=== PATIENT | female | born 1955 | race Caucasian/White ===

== ENCOUNTER 2021-04-20 23:34 | Inpatient (IN) | payer MEDICARE, OTHER ==
[~2021-04-20] VITALS: Ht 152.4 cm; Wt 74.8 kg
--- NOTE | 2021-04-20 23:46 | NUR ---
PT [id number] Cristina GAN FROM [facility] FOR PSYCH ADMISSION. PLACED IN BED 10. PT AMBULATORY WITH STEADY GAIT. VSS. URINE COLLECTED, SENT TO LAB. AWAITING COMPOSITE WORKER FOR BLOOD DRAW. WILL CALL FOR COVID SWAB.
[2021-04-20 23:54] LABS: BASOPHILS % (AUTO) 0.4 % (0.0-2.0); EOSINOPHILS % (AUTO) 5.7 % (0.0-6.0); HEMATOCRIT 41 % (33-45); HEMOGLOBIN 13.8 g/dL (11.5-14.8); MEAN CORPUSCULAR HGB CONC 34 g/dl (31.0-36.0); MEAN CORPUSCULAR VOLUME 97 fL (82-100); MONOCYTES # (AUTO) 0.9 K/uL (0.1-1.30); MONOCYTES % (AUTO) 9.6 % (2.0-12.0); NEUTROPHILS # (AUTO) 4.9 K/uL (1.8-8.9); NEUTROPHILS % (AUTO) 52.3 % (43.0-81.0); PLATELET COUNT (AUTO) 252 K/uL (150-450); RED BLOOD CELL COUNT(AUTO) 4.25 MIL/uL (4.0-5.2); WHITE BLOOD COUNT (AUTO) 9.4 K/uL (4.3-11.0)
[2021-04-20] MEDS ORDERED: DIVA250T PO (23:55)
[2021-04-20] MEDS ORDERED: LISI10TA29 PO (23:55)
[2021-04-20] MEDS ORDERED: ATOR40TA PO (23:55)
[2021-04-20] MEDS ORDERED: DOCU100C36 PO (23:55)
[2021-04-20] MEDS ORDERED: VITAMIN D3 PO (23:55)
[2021-04-20] MEDS ORDERED: ACET325T53 PO (23:55)
[2021-04-20] MEDS ORDERED: OLAN10TA3 PO (23:55)
[2021-04-20] MEDS ORDERED: OLAN5TAB3 PO (23:55)
[2021-04-20] MEDS ORDERED: MULT-447 PO (23:55)
--- NOTE | 2021-04-20 23:55 | NUR ---
URINE COLLECTED AND SENT TO LAB
[2021-04-21] LABS: BILIRUBIN,URINE Negative (NEGATIVE); COLOR,URINE YELLOW (YELLOW); LEUKOCYTE ESTERASE ,URINE Negative (NEGATIVE); NITRITE, URINE Negative (NEGATIVE); PROTEIN,URINE Negative (NEGATIVE); UGLUCOSE Negative (NEGATIVE); UROBILINOGEN,URINE 0.2 EU/dL (0.2)
[2021-04-21 00:04] LABS: CALCIUM, SERUM 9.2 mg/dL (8.5-10.1); CARBON DIOXIDE 28 mmol/L (21-32); CHLORIDE 106 mmol/L (98-107); CREATININE 0.8 mg/dL (0.6-1.3); GLUCOSE 111 mg/dL (74-106); SODIUM SERUM 143 mmol/L (136-145); UREA NITROGEN, BLOOD 12 mg/dL (7-18)
[2021-04-21 00:10] LABS: ALANINE AMINOTRANSFERASE 39 U/L (12-78); ALBUMIN 3.9 g/dL (3.4-5.0); ALKALINE PHOSPHATASE 159 U/L (46-116); ASPARTATE AMINOTRANSFERASE 23 U/L (15-37); BILIRUBIN,DIRECT 0.1 mg/dL (0.0-0.2); BILIRUBIN,TOTAL 0.5 mg/dL (0.2-1.0); TOTAL PROTEIN, SERUM 7.8 g/dL (6.4-8.2)
[2021-04-21 00:11] LABS: ACETAMINOPHEN 0 ug/ml (10-30); ALCOHOL, BLOOD < 3 mg/dL (0-0)
[2021-04-21 00:31] LABS: BACTERIA,URINE Few /HPF (None Seen); RBC,URINE 0-2 /HPF (0-2); SQUAMOUS EPITHELIAL CELL,UR Few /HPF (None Seen); WBC,URINE 0-2 /HPF (0-3)
--- NOTE | 2021-04-21 01:03 | NUR ---
REPORT GIVEN TO DIONISIO SMITH FOR SHANNAN.
[2021-04-21 01:15] VITALS: BP 159/82
[2021-04-21] MEDS ORDERED: MAG HYDROX/AL HYDROX/SIMETH 30 ML UDC PO PRN (01:30)
[2021-04-21] MEDS ORDERED: TEMAZEPAM 7.5 MG CAPSULE PO PRN (01:30)
[2021-04-21] MEDS ORDERED: ACETAMINOPHEN 325 MG TABLET PO PRN (01:30)
[2021-04-21] MEDS ORDERED: MAGNESIUM HYDROXIDE 30 ML UDC PO PRN (01:30)
[2021-04-21] MEDS ORDERED: ACETAMINOPHEN 325 MG TABLET PO SCH (01:30)
[2021-04-21] MEDS ORDERED: BLOOD SUGAR DIAGNOSTIC 1 EACH STRIP IN ONE (01:45)
--- NOTE | 2021-04-21 02:12 | NUR ---
RN NOTE PATIENT IS FORGETFUL & STATED THAT SHE RECEIVED COVID VACCINE 2 DOSE BUT DOES NOT REMEMBER WHERE & WHEN SHE RECEIVED IT. WHEN ASKED WHO TO CALL (FAMILY MEMBER) TO NOTIFY ABOUT HER ADMISSION AT [facility] GPS UNIT, PATIENT STATED," NO ONE, DON'T CALL MY SON KANNAN AT ALL, I DON'T WANT HIM OR ANYONE TO KNOW THAT I AM HERE." PATIENT STATED," KANNAN IS THE ONE WHO SENT ME HERE."
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
[2021-04-21] MEDS: LORAZEPAM 0.5 MG TABLET PO PRN ×2 (03:10→10:28)
--- NOTE | 2021-04-21 03:13 | NUR ---
RN NOTE: ANXIETY PATIENT VERBALIZED FEELING ANXIOUS, PACING IN HER ROOM TO THE RESTROOM, UNABLE TO SLEEP. PRN ATIVAN 0.5 MG 1 TAB PO ADMINISTERED.
--- NOTE | 2021-04-21 07:23 | NUR ---
RN NOTE CHARGE NURSE NOTIFIED DR. OWENS ABOUT PATIENT'S ADMISSION AT GPS.
[2021-04-21 08:00] VITALS: BP 97/52
[2021-04-21] MEDS: MULTIVIT W/MINERALS 1 TAB TABLET PO SCH (08:53)
[2021-04-21] MEDS: DOCUSATE SODIUM 100 MG CAPSULE PO SCH (08:54)
[2021-04-21] MEDS: LISINOPRIL (10MG) 10 MG TABLET PO SCH (08:54)
--- NOTE | 2021-04-21 10:39 | NUR ---
RN-NOTES NOTED PATIENT VERY ANXIOUS PACING IN AND OUT HER ROOM,GUARDED AND IRRITABLE.STATED " I DON'T WANT ANYONE KNOWS THAT I'M HERE IN THE HOSPITAL EVEN MY SON". ATIVAN 0.5MG P.O GIVEN PRN ORDER. WILL CONT. MONITORING FOR SAFETY AND BEHAVIOR.
--- NOTE | 2021-04-21 11:30 | NUR ---
RN-NOTES PATIENT SITTING IN BED AWAKE,ALERT CALM,NO ACUTE DISTRESS NOTED.
[2021-04-21] MEDS ORDERED: OLANZAPINE 2.5 MG TABLET PO PRN (14:00)
--- NOTE | 2021-04-21 14:33 | NUR ---
RN-NOTES PATIENT SITTING IN THE CHAIR NEXT TO HER BED, CALM,NO ACUTE DISTRESS NOTED. ENDORSED TO CHARGE FOR CONTINUITY OF CARE.
[2021-04-21 16:00] VITALS: BP 117/70
[2021-04-21] MEDS: DIVALPROEX SODIUM 250 MG TABLET.DR PO SCH (16:40)
[2021-04-21 19:34] VITALS: BP 130/84
[2021-04-21 20:10] VITALS: BP 130/84
[2021-04-21] MEDS: OLANZAPINE 5 MG TABLET PO SCH (21:24)
[2021-04-21] MEDS: ATORVASTATIN 40 MG TABLET PO SCH (21:45)
[2021-04-22 07:03] LABS: BASOPHILS % (AUTO) 0.5 % (0.0-2.0); EOSINOPHILS % (AUTO) 10.3 % (0.0-6.0); HEMATOCRIT 39 % (33-45); LYMPHOCYTES # (AUTO) 2.1 K/uL (0.8-4.8); LYMPHOCYTES % (AUTO) 28.5 % (20.0-44.0); MEAN CORPUSCULAR HGB CONC 33 g/dl (31.0-36.0); MEAN CORPUSCULAR VOLUME 98 fL (82-100); MONOCYTES # (AUTO) 0.7 K/uL (0.1-1.30); MONOCYTES % (AUTO) 10.1 % (2.0-12.0); NEUTROPHILS # (AUTO) 3.7 K/uL (1.8-8.9); NEUTROPHILS % (AUTO) 50.6 % (43.0-81.0); PLATELET COUNT (AUTO) 231 K/uL (150-450); RED BLOOD CELL COUNT(AUTO) 3.97 MIL/uL (4.0-5.2); WHITE BLOOD COUNT (AUTO) 7.3 K/uL (4.3-11.0)
[2021-04-22 07:17] LABS: CALCIUM, SERUM 8.5 mg/dL (8.5-10.1); CREATININE 0.8 mg/dL (0.6-1.3); POTASSIUM 3.8 mmol/L (3.5-5.1)
[2021-04-22 08:00] VITALS: BP 156/85
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
[2021-04-22] MEDS: LISINOPRIL (10MG) 10 MG TABLET PO SCH (08:30)
[2021-04-22] MEDS: DIVALPROEX SODIUM 250 MG TABLET.DR PO SCH ×3 (08:30→16:54)
[2021-04-22] MEDS: MULTIVIT W/MINERALS 1 TAB TABLET PO SCH (08:30)
[2021-04-22] MEDS: DOCUSATE SODIUM 100 MG CAPSULE PO SCH (08:30)
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
--- NOTE | 2021-04-22 12:06 | NUR ---
Facility contact: MARIAM contacted Brian ([phone]) from [facility] and inquired if pt can return to the facility upon discharge. Brian reports that pt can return to facility upon discharge.
--- NOTE | 2021-04-22 12:08 | NUR ---
Initial discharge plan: Pt currently lives at [facility] located at [address] [address]; [phone].Per pt she would like to return home upon discharge. Per son, he would like pt to return back to SNF. Per, [facility] pt will be accepted back upon discharge. MARIAM will work with the pt and the MD regarding appropriate discharge planning. SW will form a safe and proper discharge.
[2021-04-22 20:00] VITALS: BP 128/86
[2021-04-22] MEDS: OLANZAPINE 5 MG TABLET PO SCH (21:19)
[2021-04-22] MEDS: ATORVASTATIN 40 MG TABLET PO SCH (22:14)
[2021-04-23 08:00] VITALS: BP 113/87
[2021-04-23] MEDS: LISINOPRIL (10MG) 10 MG TABLET PO SCH (08:29)
[2021-04-23] MEDS: DIVALPROEX SODIUM 250 MG TABLET.DR PO SCH ×3 (08:29→17:18)
[2021-04-23] MEDS: MULTIVIT W/MINERALS 1 TAB TABLET PO SCH (08:29)
[2021-04-23] MEDS: DOCUSATE SODIUM 100 MG CAPSULE PO SCH (08:31)
[2021-04-23 16:00] VITALS: BP 116/72
[2021-04-23 20:03] VITALS: BP 113/66
[2021-04-23] MEDS: OLANZAPINE 5 MG TABLET PO SCH (21:04)
[2021-04-23] MEDS: ATORVASTATIN 40 MG TABLET PO SCH (21:05)
[2021-04-24 08:00] VITALS: BP 90/50
[2021-04-24] MEDS: LISINOPRIL (10MG) 10 MG TABLET PO SCH (08:15)
[2021-04-24] MEDS: DIVALPROEX SODIUM 250 MG TABLET.DR PO SCH ×3 (08:44→16:15)
[2021-04-24] MEDS: DOCUSATE SODIUM 100 MG CAPSULE PO SCH (08:44)
[2021-04-24] MEDS: MULTIVIT W/MINERALS 1 TAB TABLET PO SCH (08:44)
[2021-04-24 16:00] VITALS: BP 97/58
[2021-04-24 20:00] VITALS: BP 130/82
[2021-04-24] MEDS: ATORVASTATIN 40 MG TABLET PO SCH (21:20)
[2021-04-24] MEDS: OLANZAPINE 5 MG TABLET PO SCH (21:21)
--- NOTE | 2021-04-24 21:53 | NUR ---
RN NOTE PATIENT REFUSED TO HAVE PHOTOS TAKEN PER PROTOCOL QSUNDAY.
[2021-04-25 08:00] VITALS: BP_SYST 115
[2021-04-25] MEDS: LISINOPRIL (10MG) 10 MG TABLET PO SCH (08:48)
[2021-04-25] MEDS: MULTIVIT W/MINERALS 1 TAB TABLET PO SCH (08:48)
[2021-04-25] MEDS: DOCUSATE SODIUM 100 MG CAPSULE PO SCH (08:48)
[2021-04-25] MEDS: DIVALPROEX SODIUM 250 MG TABLET.DR PO SCH ×3 (08:48→16:06)
[2021-04-25 16:21] VITALS: BP 124/67
[2021-04-25] MEDS: ATORVASTATIN 40 MG TABLET PO SCH (21:04)
[2021-04-25] MEDS: OLANZAPINE 5 MG TABLET PO SCH (21:04)
[2021-04-26 07:14] LABS: BASOPHILS % (AUTO) 0.6 % (0.0-2.0); EOSINOPHILS % (AUTO) 7.7 % (0.0-6.0); HEMATOCRIT 39 % (33-45); HEMOGLOBIN 13.1 g/dL (11.5-14.8); LYMPHOCYTES # (AUTO) 2.6 K/uL (0.8-4.8); LYMPHOCYTES % (AUTO) 33.5 % (20.0-44.0); MEAN CORPUSCULAR HGB CONC 34 g/dl (31.0-36.0); MEAN CORPUSCULAR VOLUME 98 fL (82-100); MONOCYTES # (AUTO) 0.9 K/uL (0.1-1.30); MONOCYTES % (AUTO) 11.1 % (2.0-12.0); NEUTROPHILS # (AUTO) 3.6 K/uL (1.8-8.9); NEUTROPHILS % (AUTO) 47.1 % (43.0-81.0); PLATELET COUNT (AUTO) 235 K/uL (150-450); RED BLOOD CELL COUNT(AUTO) 3.94 MIL/uL (4.0-5.2); WHITE BLOOD COUNT (AUTO) 7.7 K/uL (4.3-11.0)
[2021-04-26 07:51] LABS: ALBUMIN 3.1 g/dL (3.4-5.0); BILIRUBIN,TOTAL 0.3 mg/dL (0.2-1.0); CALCIUM, SERUM 8.5 mg/dL (8.5-10.1); CREATININE 0.8 mg/dL (0.6-1.3); POTASSIUM 3.9 mmol/L (3.5-5.1); TOTAL PROTEIN, SERUM 6.8 g/dL (6.4-8.2)
[2021-04-26 08:00] VITALS: BP 100/54
[2021-04-26] MEDS: ERGOCALCIFEROL (VITAMIN D 2) 50,000 UNIT CAPSULE PO SCH (08:28)
[2021-04-26] MEDS: DIVALPROEX SODIUM 250 MG TABLET.DR PO SCH ×3 (08:28→16:35)
[2021-04-26] MEDS: DOCUSATE SODIUM 100 MG CAPSULE PO SCH (08:29)
[2021-04-26] MEDS: MULTIVIT W/MINERALS 1 TAB TABLET PO SCH (08:29)
[2021-04-26] MEDS: LISINOPRIL (10MG) 10 MG TABLET PO SCH (08:30)
--- NOTE | 2021-04-26 14:05 | NUR ---
Probable cause hearing: Pts 5250 hold was upheld on the grounds of gravely disabled.
[2021-04-26 16:00] VITALS: BP 122/88
[2021-04-26 20:00] VITALS: BP 128/82
[2021-04-26] MEDS: ATORVASTATIN 40 MG TABLET PO SCH (21:17)
[2021-04-26] MEDS: OLANZAPINE 5 MG TABLET PO SCH (21:17)
[2021-04-27 09:11] VITALS: BP 100/63
[2021-04-27] MEDS: MULTIVIT W/MINERALS 1 TAB TABLET PO SCH (09:18)
[2021-04-27] MEDS: DIVALPROEX SODIUM 250 MG TABLET.DR PO SCH ×3 (09:18→17:37)
[2021-04-27] MEDS: LISINOPRIL (10MG) 10 MG TABLET PO SCH (09:18)
[2021-04-27] MEDS: DOCUSATE SODIUM 100 MG CAPSULE PO SCH (09:18)
[2021-04-27 16:34] VITALS: BP 156/93
[2021-04-27 20:31] VITALS: BP 125/71
[2021-04-27] MEDS: ATORVASTATIN 40 MG TABLET PO SCH (20:55)
[2021-04-27] MEDS ORDERED: OLANZAPINE 5 MG TABLET PO SCH (21:00)
[2021-04-28 08:00] VITALS: BP 92/52
[2021-04-28] MEDS: LISINOPRIL (10MG) 10 MG TABLET PO SCH (08:29)
[2021-04-28] MEDS: DOCUSATE SODIUM 100 MG CAPSULE PO SCH (08:30)
[2021-04-28] MEDS: MULTIVIT W/MINERALS 1 TAB TABLET PO SCH (08:31)
[2021-04-28] MEDS: DIVALPROEX SODIUM 250 MG TABLET.DR PO SCH ×3 (08:31→16:42)
[2021-04-28 16:00] VITALS: BP 97/59
[2021-04-28 20:00] VITALS: BP 111/79
[2021-04-28] MEDS: OLANZAPINE 5 MG TABLET PO SCH (20:31)
[2021-04-28] MEDS: BENZTROPINE MESYLATE (1 MG) 1 MG TABLET PO SCH (20:32)
[2021-04-28] MEDS: ATORVASTATIN 40 MG TABLET PO SCH (21:06)
[2021-04-29 08:00] VITALS: BP 154/82
[2021-04-29] MEDS: BENZTROPINE MESYLATE (1 MG) 1 MG TABLET PO SCH ×2 (08:19→16:28)
[2021-04-29] MEDS: DOCUSATE SODIUM 100 MG CAPSULE PO SCH (08:19)
[2021-04-29] MEDS: DIVALPROEX SODIUM 250 MG TABLET.DR PO SCH ×3 (08:19→16:29)
[2021-04-29] MEDS: LISINOPRIL (10MG) 10 MG TABLET PO SCH (08:19)
[2021-04-29] MEDS: MULTIVIT W/MINERALS 1 TAB TABLET PO SCH (08:20)
[2021-04-29 16:00] VITALS: BP 108/69
[2021-04-29 20:01] VITALS: BP 111/59
[2021-04-29] MEDS: OLANZAPINE 5 MG TABLET PO SCH (20:28)
[2021-04-29] MEDS: ATORVASTATIN 40 MG TABLET PO SCH (21:14)
[2021-04-30 08:00] VITALS: BP 117/74
[2021-04-30] MEDS: BENZTROPINE MESYLATE (1 MG) 1 MG TABLET PO SCH ×2 (08:08→16:57)
[2021-04-30] MEDS: DIVALPROEX SODIUM 250 MG TABLET.DR PO SCH ×3 (08:08→16:57)
[2021-04-30] MEDS: DOCUSATE SODIUM 100 MG CAPSULE PO SCH (08:08)
[2021-04-30] MEDS: LISINOPRIL (10MG) 10 MG TABLET PO SCH (08:08)
[2021-04-30] MEDS: MULTIVIT W/MINERALS 1 TAB TABLET PO SCH (08:08)
[2021-04-30 16:07] VITALS: BP 105/58
[2021-04-30 20:02] VITALS: BP 123/69
[2021-04-30] MEDS: OLANZAPINE 5 MG TABLET PO SCH (21:20)
[2021-04-30] MEDS: ATORVASTATIN 40 MG TABLET PO SCH (21:27)
[2021-05-01 01:28] VITALS: BP 123/69
[2021-05-01 08:00] VITALS: BP 121/84
[2021-05-01] MEDS: DIVALPROEX SODIUM 250 MG TABLET.DR PO SCH ×3 (08:36→16:31)
[2021-05-01] MEDS: BENZTROPINE MESYLATE (1 MG) 1 MG TABLET PO SCH ×2 (08:36→16:31)
[2021-05-01] MEDS: MULTIVIT W/MINERALS 1 TAB TABLET PO SCH (08:36)
[2021-05-01] MEDS: DOCUSATE SODIUM 100 MG CAPSULE PO SCH (08:37)
[2021-05-01] MEDS: LISINOPRIL (10MG) 10 MG TABLET PO SCH (08:37)
[2021-05-01 16:00] VITALS: BP 104/68
[2021-05-01 20:00] VITALS: BP 102/56
--- NOTE | 2021-05-01 20:00 | NUR ---
GPS-RN NOTES: PATIENT REFUSED SKIN WEEKLY ASSESSMENT. EXPLAINED RISKS AND BENEFITS BUT PATIENT CONTINUED TO REFUSE.
[2021-05-01] MEDS: OLANZAPINE 5 MG TABLET PO SCH (21:15)
[2021-05-01] MEDS: ATORVASTATIN 40 MG TABLET PO SCH (21:15)
[2021-05-02 08:00] VITALS: BP 107/64
[2021-05-02] MEDS: BENZTROPINE MESYLATE (1 MG) 1 MG TABLET PO SCH ×2 (08:18→17:32)
[2021-05-02] MEDS: DOCUSATE SODIUM 100 MG CAPSULE PO SCH (08:18)
[2021-05-02] MEDS: MULTIVIT W/MINERALS 1 TAB TABLET PO SCH (08:18)
[2021-05-02] MEDS: DIVALPROEX SODIUM 250 MG TABLET.DR PO SCH ×3 (08:18→17:32)
[2021-05-02] MEDS: LISINOPRIL (10MG) 10 MG TABLET PO SCH (08:19)
[2021-05-02 15:26] LABS: CALCIUM, SERUM 9.1 mg/dL (8.5-10.1); CREATININE 0.8 mg/dL (0.6-1.3); POTASSIUM 4.3 mmol/L (3.5-5.1)
[2021-05-02 16:00] VITALS: BP 130/72
[2021-05-02] MEDS ORDERED: OLANZAPINE 10 MG VIAL IM STA (18:40)
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
[2021-05-02 20:00] VITALS: BP 143/79
[2021-05-02] MEDS: OLANZAPINE 5 MG TABLET PO SCH (21:06)
[2021-05-02] MEDS: ATORVASTATIN 40 MG TABLET PO SCH (21:53)
[2021-05-03 07:28] LABS: BASOPHILS % (AUTO) 0.2 % (0.0-2.0); EOSINOPHILS % (AUTO) 2.3 % (0.0-6.0); HEMATOCRIT 37 % (33-45); HEMOGLOBIN 12.6 g/dL (11.5-14.8); LYMPHOCYTES # (AUTO) 1.6 K/uL (0.8-4.8); LYMPHOCYTES % (AUTO) 12.9 % (20.0-44.0); MEAN CORPUSCULAR HGB CONC 34 g/dl (31.0-36.0); MEAN CORPUSCULAR VOLUME 97 fL (82-100); MONOCYTES # (AUTO) 1.6 K/uL (0.1-1.30); MONOCYTES % (AUTO) 12.8 % (2.0-12.0); NEUTROPHILS # (AUTO) 8.9 K/uL (1.8-8.9); NEUTROPHILS % (AUTO) 71.8 % (43.0-81.0); PLATELET COUNT (AUTO) 231 K/uL (150-450); RED BLOOD CELL COUNT(AUTO) 3.84 MIL/uL (4.0-5.2); WHITE BLOOD COUNT (AUTO) 12.5 K/uL (4.3-11.0)
[2021-05-03 07:54] LABS: ALBUMIN 2.8 g/dL (3.4-5.0); BILIRUBIN,TOTAL 0.7 mg/dL (0.2-1.0); CALCIUM, SERUM 8.5 mg/dL (8.5-10.1); CREATININE 0.7 mg/dL (0.6-1.3); POTASSIUM 3.8 mmol/L (3.5-5.1); TOTAL PROTEIN, SERUM 7.2 g/dL (6.4-8.2)
[2021-05-03 08:00] VITALS: BP 122/86
[2021-05-03] MEDS: MULTIVIT W/MINERALS 1 TAB TABLET PO SCH (09:24)
[2021-05-03] MEDS: DOCUSATE SODIUM 100 MG CAPSULE PO SCH (09:24)
[2021-05-03] MEDS: BENZTROPINE MESYLATE (1 MG) 1 MG TABLET PO SCH ×2 (09:24→17:59)
[2021-05-03] MEDS: DIVALPROEX SODIUM 250 MG TABLET.DR PO SCH ×3 (09:25→17:58)
[2021-05-03] MEDS: LISINOPRIL (10MG) 10 MG TABLET PO SCH (09:25)
[2021-05-03] MEDS: ERGOCALCIFEROL (VITAMIN D 2) 50,000 UNIT CAPSULE PO SCH (09:25)
[2021-05-03] MEDS: OLANZAPINE 2.5 MG TABLET PO SCH (12:44)
[2021-05-03 16:00] VITALS: BP 96/61
[2021-05-03 20:00] VITALS: BP 127/77
[2021-05-03 20:08] VITALS: BP 127/77
[2021-05-03] MEDS ORDERED: OLANZAPINE 5 MG TABLET PO SCH (21:00)
[2021-05-03] MEDS: ATORVASTATIN 40 MG TABLET PO SCH (21:30)
--- NOTE | 2021-05-03 21:50 | NUR ---
RN NOTE: REFUSED SKIN ASSESSMENT PATIENT NOTED WITH NUMEROUS SCRATCHES WITH OPEN SKIN TO HANDS & FEET, PATIENT IS NON COMPLAINT WITH FULL SKIN ASSESSMENT & REFUSED PICTURES. PATIENT BECOMES VERY PARANOID, SUSPICIOUS, RESTLESS & AGITATED WHEN ENCOURAGED. DESPITE OF EXPLANATIONS PT REFUSED SKIN REASSESSMENT MULTIPLE TIMES.
[2021-05-04 08:00] VITALS: BP 119/67
[2021-05-04] MEDS: DOCUSATE SODIUM 100 MG CAPSULE PO SCH (09:23)
[2021-05-04] MEDS: LISINOPRIL (10MG) 10 MG TABLET PO SCH (09:24)
[2021-05-04] MEDS: MULTIVIT W/MINERALS 1 TAB TABLET PO SCH (09:24)
[2021-05-04] MEDS: DIVALPROEX SODIUM 250 MG TABLET.DR PO SCH ×3 (09:24→17:37)
[2021-05-04] MEDS: BENZTROPINE MESYLATE (1 MG) 1 MG TABLET PO SCH ×2 (09:24→17:38)
[2021-05-04] MEDS: OLANZAPINE 2.5 MG TABLET PO SCH (13:03)
[2021-05-04 16:00] VITALS: BP 136/73
[2021-05-04 19:50] VITALS: BP_SYST 116; BP_SYST 133; BP_DIAS 76; BP_DIAS 81
[2021-05-04] MEDS: ATORVASTATIN 40 MG TABLET PO SCH (22:31)
[2021-05-04] MEDS: OLANZAPINE 5 MG TABLET PO SCH (22:31)
[2021-05-04] MEDS: LORAZEPAM 0.5 MG TABLET PO PRN (22:32)
[2021-05-05 08:00] VITALS: BP 127/75
[2021-05-05] MEDS: BENZTROPINE MESYLATE (1 MG) 1 MG TABLET PO SCH ×2 (08:20→16:20)
[2021-05-05] MEDS: DIVALPROEX SODIUM 250 MG TABLET.DR PO SCH ×3 (08:20→16:20)
[2021-05-05] MEDS: LISINOPRIL (10MG) 10 MG TABLET PO SCH (08:20)
[2021-05-05] MEDS: DOCUSATE SODIUM 100 MG CAPSULE PO SCH (08:20)
[2021-05-05] MEDS: MULTIVIT W/MINERALS 1 TAB TABLET PO SCH (08:20)
[2021-05-05] MEDS: OLANZAPINE 2.5 MG TABLET PO SCH (13:20)
[2021-05-05 16:00] VITALS: BP 121/68
[2021-05-05 19:52] VITALS: BP 116/71
[2021-05-05] MEDS: OLANZAPINE 5 MG TABLET PO SCH (21:29)
[2021-05-05] MEDS: ATORVASTATIN 40 MG TABLET PO SCH (21:29)
[2021-05-06 08:00] VITALS: BP 99/66
[2021-05-06] MEDS: LISINOPRIL (10MG) 10 MG TABLET PO SCH (09:00)
[2021-05-06] MEDS: MULTIVIT W/MINERALS 1 TAB TABLET PO SCH (09:12)
[2021-05-06] MEDS: DIVALPROEX SODIUM 250 MG TABLET.DR PO SCH ×3 (09:12→17:53)
[2021-05-06] MEDS: BENZTROPINE MESYLATE (1 MG) 1 MG TABLET PO SCH ×2 (09:12→17:53)
[2021-05-06] MEDS: DOCUSATE SODIUM 100 MG CAPSULE PO SCH (09:12)
[2021-05-06] MEDS: OLANZAPINE 2.5 MG TABLET PO SCH ×2 (13:59→17:53)
--- NOTE | 2021-05-06 15:19 | NUR ---
Discharge Planning: SW met with pt. bedside to discuss discharge plan. SW informed pt. she has been accepted back to [facility]. pt. states she understands and is agreeable to D/C to [facility].
--- NOTE | 2021-05-06 15:28 | NUR ---
Family contact regarding D/C : SW called pt.'s son Davonte Magdaleno ([phone]) to notify him that the pt. was accepted back to [facility] and will have continuity of care as Dr. Fraser will be following the pt.'s care whi at the facility. Davonte expressed understanding and is agreeable to plan.
[2021-05-06 16:00] VITALS: BP 122/76
[2021-05-06 20:18] VITALS: BP 146/83
[2021-05-06] MEDS: ATORVASTATIN 40 MG TABLET PO SCH (21:20)
[2021-05-06] MEDS: OLANZAPINE 5 MG TABLET PO SCH (21:20)
--- NOTE | 2021-05-06 21:44 | NUR ---
GPS RN NOTES: ZYPREXA 7.5MG ADMINISTERED PO ORDERED. 0.25MG PARTIAL DOSE WASTED PER MD ORDER.
[2021-05-07 08:00] VITALS: BP 103/66
[2021-05-07] MEDS: BENZTROPINE MESYLATE (1 MG) 1 MG TABLET PO SCH ×2 (08:16→16:18)
[2021-05-07] MEDS: DOCUSATE SODIUM 100 MG CAPSULE PO SCH (08:16)
[2021-05-07] MEDS: DIVALPROEX SODIUM 250 MG TABLET.DR PO SCH ×3 (08:16→16:18)
[2021-05-07] MEDS: MULTIVIT W/MINERALS 1 TAB TABLET PO SCH (08:17)
[2021-05-07] MEDS: LISINOPRIL (10MG) 10 MG TABLET PO SCH (10:30)
[2021-05-07] MEDS: OLANZAPINE 2.5 MG TABLET PO SCH ×2 (12:05→16:17)
[2021-05-07 16:00] VITALS: BP 124/67
[2021-05-07 21:02] VITALS: BP 114/66
[2021-05-07] MEDS: ATORVASTATIN 40 MG TABLET PO SCH (21:45)
[2021-05-07] MEDS: OLANZAPINE 5 MG TABLET PO SCH (21:45)
[2021-05-08 08:00] VITALS: BP 156/92
[2021-05-08] MEDS: DOCUSATE SODIUM 100 MG CAPSULE PO SCH (08:52)
[2021-05-08] MEDS: LISINOPRIL (10MG) 10 MG TABLET PO SCH (08:53)
[2021-05-08] MEDS: MULTIVIT W/MINERALS 1 TAB TABLET PO SCH (08:53)
[2021-05-08] MEDS: DIVALPROEX SODIUM 250 MG TABLET.DR PO SCH ×3 (08:53→16:52)
[2021-05-08] MEDS: BENZTROPINE MESYLATE (1 MG) 1 MG TABLET PO SCH ×2 (08:53→16:52)
[2021-05-08] MEDS: OLANZAPINE 2.5 MG TABLET PO SCH ×2 (12:39→16:52)
[2021-05-08 16:00] VITALS: BP 132/89
[2021-05-08 20:23] VITALS: BP 104/64
[2021-05-08] MEDS: OLANZAPINE 5 MG TABLET PO SCH (20:42)
[2021-05-08] MEDS: ATORVASTATIN 40 MG TABLET PO SCH (21:46)
--- NOTE | 2021-05-09 06:36 | NUR ---
GPS RN NOTES: PATIENT LAYING ON BED AWAKE, A/O X2. PATIENT SLEPT 6HR THIS SHIFT. WEEKLY SKIN ASSESSMENT DONE, PICTURES TAKEN AND PLACED IN PATIENT CHART. NO S/S OF DISTRESS. RESPIRATION EVEN AND UNLABORED WITH EQUAL RISE AND FALL OF THE CHEST, ON ROOM AIR. BED IN LOWEST POSITION AND LOCKED, SIDE RAILS UP X2. CALL MACDONALD WITHIN REACH. ALL PATIENT CARE NEEDS HAVE BEEN MET ANTICIPATED. WILL CONTINUE TO MONITOR AND ENDORSE TO AM SHIFT.
[2021-05-09 08:28] VITALS: BP 103/61
[2021-05-09] MEDS: DOCUSATE SODIUM 100 MG CAPSULE PO SCH (08:52)
[2021-05-09] MEDS: MULTIVIT W/MINERALS 1 TAB TABLET PO SCH (08:52)
[2021-05-09] MEDS: BENZTROPINE MESYLATE (1 MG) 1 MG TABLET PO SCH (08:52)
[2021-05-09] MEDS: DIVALPROEX SODIUM 250 MG TABLET.DR PO SCH ×2 (08:52→12:30)
[2021-05-09 08:53] VITALS: BP 103/61
[2021-05-09] MEDS: LISINOPRIL (10MG) 10 MG TABLET PO SCH (08:53)
[2021-05-09] MEDS: OLANZAPINE 2.5 MG TABLET PO SCH (12:30)
--- NOTE | 2021-05-09 13:30 | NUR ---
Discharge Note: The pt. was discharged back to [facility] [[address] [address]; [phone]]. Pt. was transported via [facility] [phone]. The pt. and the pt.s son, lalitha Magdaleno ([phone]) were notified of discharge and both agreeable. Upon discharge the pt. mood is euthymic, pt. remained calm & cooperative. The pt. denies SI/HI and denies hallucinations. The pt. will be seen by Psychiatrist, Dr. Fraser at facility for SHANNAN. Pt. will be seen by tobacco stemmer machine, Dr. Richardson [[address] [address]; [phone]] at facility. The choice of vendor and multidisciplinary exit care form was done, printed, signed, and given to the patient.
--- NOTE | 2021-05-09 14:25 | NUR ---
CAKE MIXER NOTE- PT DC AT THIS TIME TO [facility] VIA NIR. PT ALERT ORIENTED PERSON PLACE,. DENIES SI HI AH VH. NO VALUABLES TO RETURN. ID [id number] REMOVED. REPORT PHONED TO FACILITY TO MAC. ESCORTED OFF UNIT BY AMBULANCE STAFF AND THIS RN
== END 2021-05-09 14:25 | DRG 885 ==
LOC: ER 23:40 → GPS 04-21 00:43
PROVIDERS: ADMIT Psychiatry & Neurology Psychosomatic Medicine; ATTEND Internal Medicine
DX: F25.9 Schizoaffective disorder, unspecified (principal); E44.1 Mild protein-calorie malnutrition; I10 Essential (primary) hypertension; Z68.32 Body mass index [BMI] 32.0-32.9, adult; E66.9 Obesity, unspecified; E78.5 Hyperlipidemia, unspecified; F02.80 Dementia in other diseases classified elsewhere, unspecified severity, without behavioral disturbance, psychotic disturbance, mood disturbance, and anxiety; I69.311 Memory deficit following cerebral infarction; F41.9 Anxiety disorder, unspecified; Z91.81 History of falling; Z88.6 Allergy status to analgesic agent; Z88.0 Allergy status to penicillin; M62.81 Muscle weakness (generalized); R79.89 Other specified abnormal findings of blood chemistry; Z79.899 Other long term (current) drug therapy; R45.87 Impulsiveness; Z20.822 Contact with and (suspected) exposure to COVID-19
CPT/HCPCS: 36415; 80048-TC; 80053-TC; 80061-TC; 80076-TC; 80164-TC; 81001; 82962-TC; 85025-TC; 87081-TC; C9803; G0480; J3490

== ENCOUNTER 2021-12-08 16:36 | Inpatient (IN) | payer MEDICARE, OTHER ==
[~2021-12-08] VITALS: Ht 167.6 cm; Wt 79.8 kg
[~2021-12-08 16:36] MED LIST: ACET325T53 PO; ATOR40TA PO; DIVA250T PO; DOCU100C36 PO; LISI10TA29 PO; MULT-447 PO; OLAN10TA3 PO; OLAN5TAB3 PO; VITAMIN D3 PO
--- NOTE | 2021-12-08 16:42 | NUR ---
To ER bed 12, from [facility], was Sent here for psych eval- uncontrolled behavior, refusing care, HITS staff", aaox3, breathing even and non labored, connected to monitor, awaiting md to
[2021-12-08] MEDS ORDERED: ACET325T53 PO (17:24)
[2021-12-08] MEDS ORDERED: DIVA500T2 PO (17:24)
[2021-12-08] MEDS ORDERED: BENZ0.5T43 PO (17:24)
[2021-12-08] MEDS ORDERED: ERGO500093 PO (17:24)
[2021-12-08] MEDS ORDERED: MAGN400O6 PO (17:24)
--- NOTE | 2021-12-08 17:27 | NUR ---
URINE COLLECTED AND COVID SWAB DONE AND SENT TO LAB
[2021-12-08 17:28] LABS: BASOPHILS # (AUTO) 0.1 K/uL (0.0-0.2); BASOPHILS % (AUTO) 0.6 % (0.0-2.0); EOSINOPHILS % (AUTO) 1.1 % (0.0-6.0); HEMATOCRIT 42 % (33-45); HEMOGLOBIN 14.1 g/dL (11.5-14.8); LYMPHOCYTES # (AUTO) 2.1 K/uL (0.8-4.8); MEAN CORPUSCULAR HGB CONC 34 g/dl (31.0-36.0); MEAN CORPUSCULAR VOLUME 96 fL (82-100); MONOCYTES # (AUTO) 0.7 K/uL (0.1-1.30); MONOCYTES % (AUTO) 8.2 % (2.0-12.0); NEUTROPHILS % (AUTO) 67.1 % (43.0-81.0); PLATELET COUNT (AUTO) 240 K/uL (150-450); RED BLOOD CELL COUNT(AUTO) 4.37 MIL/uL (4.0-5.2)
--- NOTE | 2021-12-08 17:28 | NUR ---
CALLED IRVIN [phone]
[2021-12-08 18:08] LABS: BILIRUBIN,URINE NEGATIVE (NEGATIVE); COLOR,URINE YELLOW (YELLOW); LEUKOCYTE ESTERASE ,URINE NEGATIVE (NEGATIVE); NITRITE, URINE NEGATIVE (NEGATIVE); PROTEIN,URINE NEGATIVE (NEGATIVE); UGLUCOSE NEGATIVE (NEGATIVE); UROBILINOGEN,URINE 0.2 EU/dL (0.2)
[2021-12-08 18:11] LABS: BACTERIA,URINE 1+ /HPF (None Seen); WBC,URINE 0-2 /HPF (0-3)
[2021-12-08 18:12] LABS: SQUAMOUS EPITHELIAL CELL,UR 21-50 /HPF (None Seen)
--- NOTE | 2021-12-08 18:13 | NUR ---
MOVE SHEET SUBMITTED AND CALLED FOR GPS BED.
[2021-12-08 18:48] LABS: CARBON DIOXIDE 25 mmol/L (21-32); CHLORIDE 104 mmol/L (98-107); GLUCOSE 104 mg/dL (74-106); POTASSIUM 3.4 mmol/L (3.5-5.1); SODIUM SERUM 140 mmol/L (136-145)
[2021-12-08 18:49] LABS: CALCIUM, SERUM 9.1 mg/dL (8.5-10.1); CREATININE 0.8 mg/dL (0.6-1.3); UREA NITROGEN, BLOOD 20 mg/dL (7-18)
[2021-12-08 18:59] LABS: ALANINE AMINOTRANSFERASE 41 U/L (12-78); ALKALINE PHOSPHATASE 150 U/L (46-116); ASPARTATE AMINOTRANSFERASE 22 U/L (15-37); BILIRUBIN,DIRECT 0.1 mg/dL (0.0-0.2); BILIRUBIN,TOTAL 0.5 mg/dL (0.2-1.0); TOTAL PROTEIN, SERUM 8.5 g/dL (6.4-8.2)
[2021-12-08 19:00] LABS: ALCOHOL, BLOOD < 3 mg/dL (0-0)
--- NOTE | 2021-12-08 20:12 | NUR ---
ROOM 211-1 GPS
--- NOTE | 2021-12-08 20:21 | NUR ---
REPORT GIVEN TO JULIAN SMITH FOR SHANNAN
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
[2021-12-08] MEDS ORDERED: ACETAMINOPHEN 325 MG TABLET PO PRN (21:00)
[2021-12-08] MEDS ORDERED: MAGNESIUM HYDROXIDE 30 ML UDC PO PRN (21:00)
[2021-12-08] MEDS ORDERED: TEMAZEPAM 7.5 MG CAPSULE PO PRN (21:00)
[2021-12-08] MEDS ORDERED: MAG HYDROX/AL HYDROX/SIMETH 30 ML UDC PO PRN (21:00)
[2021-12-08] MEDS ORDERED: LORAZEPAM 0.5 MG TABLET PO PRN (21:00)
[2021-12-08] MEDS ORDERED: BLOOD SUGAR DIAGNOSTIC 1 EACH STRIP IN ONE (21:30)
[2021-12-08 21:47] VITALS: BP 136/89
[2021-12-08] MEDS ORDERED: NITROFURANTOIN/MONOHYDRATE MACROCRYSTALS 100 MG CAPSULE PO SCH (22:00)
[2021-12-08] MEDS ORDERED: POTASSIUM CHLORIDE 20 MEQ TAB.PRT.SR PO ONE (22:00)
[2021-12-08] MEDS ORDERED: ERGOCALCIFEROL (VITAMIN D 2) 50,000 UNIT CAPSULE PO SCH (23:30)
[2021-12-09 08:00] VITALS: BP 104/67
[2021-12-09] MEDS: LISINOPRIL (10MG) 10 MG TABLET PO SCH (09:00)
[2021-12-09] MEDS: DOCUSATE SODIUM 100 MG CAPSULE PO SCH (09:06)
[2021-12-09] MEDS: MULTIVIT W/MINERALS 1 TAB TABLET PO SCH (09:06)
--- NOTE | 2021-12-09 12:25 | NUR ---
Received an order from Dr. Fraser for the denial of right to use the phone.
--- NOTE | 2021-12-09 14:03 | NUR ---
Family Contact: Pt. gave SW verbal consent to call her son, Davonte Magdaleno [phone]. SW called Davonte to discuss Discharge plan and gather collateral information. Davonte stated he is the pt.'s POA and will email this SW the POA paperwork. Per pt.'s son, the pt. 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
--- NOTE | 2021-12-09 14:04 | NUR ---
Initial Discharge Note: The pt. currently resides at [facility] [[address] [facility] [address]; [phone]]. MARIAM spoke to Erin from [facility] Admission dept. who stated that pt. can return to facility when she is stable and ready for discharge. The pt. stated she is ambivalent about returning back to facility and would prefer to return to her old apartment. MARIAM discussed DC plan with pt.'s POA/son, Davonte Magdaleno [phone] who stated that apartment is no longer available and pt. is not able to return. Per Davonte, he would like the pt. to return to [facility] or be placed in a facility near [place] or [place]. Noted. SW will collaborate with patient, family & psychiatrist to formulate a safe & proper discharge plan.
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
[2021-12-09 16:00] VITALS: BP 100/62
[2021-12-09 19:50] VITALS: BP 111/70
[2021-12-09 19:58] VITALS: BP 111/70
[2021-12-09] MEDS: ATORVASTATIN 40 MG TABLET PO SCH (21:17)
--- NOTE | 2021-12-10 01:30 | NUR ---
GPS RN NOTE PATIENT IS STILL AWAKE, CALM, COOPERATIVE, WATCHING TV IN THE DINNING AREA, OFFERED SLEEPING MEDICINE MULTIPLE TIMES BUT PATIENT CONTINUED TO REFUSE AND STATED," I CAN SLEEP ON MY OWN, I DON'T NEED MEDICINE. I JUST WANT TO WATCH LAST PART OF THIS SHOW THEN I WILL GO TO SLEEP." WILL CONTINUE TO MONITOR THE PATIENT.
[2021-12-10 07:55] LABS: BASOPHILS # (AUTO) 0.1 K/uL (0.0-0.2); BASOPHILS % (AUTO) 0.6 % (0.0-2.0); EOSINOPHILS % (AUTO) 5.4 % (0.0-6.0); HEMATOCRIT 38 % (33-45); HEMOGLOBIN 12.6 g/dL (11.5-14.8); LYMPHOCYTES # (AUTO) 2.6 K/uL (0.8-4.8); LYMPHOCYTES % (AUTO) 32.6 % (20.0-44.0); MEAN CORPUSCULAR HGB CONC 33 g/dl (31.0-36.0); MEAN CORPUSCULAR VOLUME 97 fL (82-100); MONOCYTES % (AUTO) 12.3 % (2.0-12.0); NEUTROPHILS # (AUTO) 3.9 K/uL (1.8-8.9); NEUTROPHILS % (AUTO) 49.1 % (43.0-81.0); PLATELET COUNT (AUTO) 224 K/uL (150-450)
[2021-12-10 08:00] VITALS: BP 100/60
[2021-12-10 08:03] LABS: CALCIUM, SERUM 8.5 mg/dL (8.5-10.1); CREATININE 0.9 mg/dL (0.6-1.3); POTASSIUM 3.8 mmol/L (3.5-5.1)
[2021-12-10] MEDS: MULTIVIT W/MINERALS 1 TAB TABLET PO SCH (08:24)
[2021-12-10] MEDS: DOCUSATE SODIUM 100 MG CAPSULE PO SCH (08:24)
[2021-12-10] MEDS: LISINOPRIL (10MG) 10 MG TABLET PO SCH (08:25)
[2021-12-10] MEDS: risperiDONE 1 MG TABLET PO SCH ×2 (10:47→16:39)
[2021-12-10] MEDS: DIVALPROEX SODIUM 500 MG TABLET.DR PO SCH ×2 (10:47→21:06)
[2021-12-10 16:00] VITALS: BP 125/75
--- NOTE | 2021-12-10 19:30 | NUR ---
GPS RN NOTE PT IN THE ACTIVITY ROOM WATCHING TV.NO ACUTE DISTRESS NOTED. PT BREATHING IS EVEN AND UNLABORED WITH EQUAL RISE AND FALL OF CHEST. PT IS A/O X2. PT IS MED COMPLIANT, COOPERATIVE, DISORGANIZED, AND GUARDED. PT DENIES SI/HI AT THIS TIME. PT IS AMBULATORY WITH STEADY GAIT. PT HAS NO NEEDS AT THIS TIME. PT EDUCATED ON THE USE OF THE CALL LIGHT. PT BED SIDE RAILS UP X2 FOR SAFETY. BED IS LOCKED AND LOW. WILL CONTINUE TO MONITOR Q15 MINUTES WITH THE HELP OF STAFF TO MAINTAIN SAFETY.
[2021-12-10 19:59] VITALS: BP 132/76
[2021-12-10] MEDS: ATORVASTATIN 40 MG TABLET PO SCH (21:06)
[2021-12-10] MEDS: OLANZAPINE 10 MG TABLET PO SCH (21:06)
[2021-12-11 08:00] VITALS: BP 127/71
[2021-12-11] MEDS: DOCUSATE SODIUM 100 MG CAPSULE PO SCH (08:48)
[2021-12-11] MEDS: DIVALPROEX SODIUM 500 MG TABLET.DR PO SCH ×2 (08:50→21:13)
[2021-12-11] MEDS: risperiDONE 1 MG TABLET PO SCH ×3 (08:50→16:40)
[2021-12-11] MEDS: LISINOPRIL (10MG) 10 MG TABLET PO SCH (08:50)
[2021-12-11] MEDS: MULTIVIT W/MINERALS 1 TAB TABLET PO SCH (08:50)
[2021-12-11 16:00] VITALS: BP 145/67
[2021-12-11 20:25] VITALS: BP 132/72
[2021-12-11] MEDS: ATORVASTATIN 40 MG TABLET PO SCH (21:12)
[2021-12-11] MEDS: OLANZAPINE 10 MG TABLET PO SCH (21:13)
[2021-12-12 08:00] VITALS: BP 118/64
[2021-12-12] MEDS: DOCUSATE SODIUM 100 MG CAPSULE PO SCH (08:22)
[2021-12-12] MEDS: MULTIVIT W/MINERALS 1 TAB TABLET PO SCH (08:23)
[2021-12-12] MEDS: risperiDONE 1 MG TABLET PO SCH ×4 (08:23→17:51)
[2021-12-12] MEDS: LISINOPRIL (10MG) 10 MG TABLET PO SCH (08:23)
[2021-12-12] MEDS: DIVALPROEX SODIUM 500 MG TABLET.DR PO SCH ×2 (08:23→20:59)
[2021-12-12 16:00] VITALS: BP 115/57
--- NOTE | 2021-12-12 19:24 | NUR ---
GPS RN NOTE PT IN ROOM ASLEEP EASILY WOKE N UP.NO ACUTE DISTRESS NOTED. PT BREATHING IS EVEN AND UNLABORED WITH EQUAL RISE AND FALL OF CHEST. PT IS A/O X2. PT IS MED COMPLIANT, COOPERATIVE, DISORGANIZED, AND GUARDED. PT DENIES SI/HI AT THIS TIME. PT IS AMBULATORY WITH STEADY GAIT. PT HAS NO NEEDS AT THIS TIME. PT EDUCATED ON THE USE OF THE CALL LIGHT. PT BED SIDE RAILS UP X2 FOR SAFETY. BED IS LOCKED AND LOW. WILL CONTINUE TO MONITOR Q15 MINUTES WITH THE HELP OF STAFF TO MAINTAIN SAFETY.
[2021-12-12 20:00] VITALS: BP 142/75
[2021-12-12] MEDS: ATORVASTATIN 40 MG TABLET PO SCH (21:00)
[2021-12-12] MEDS ORDERED: risperiDONE 1 MG TABLET PO SCH (22:00)
[2021-12-13 08:00] VITALS: BP 104/63
[2021-12-13] MEDS: DOCUSATE SODIUM 100 MG CAPSULE PO SCH (08:32)
[2021-12-13] MEDS: risperiDONE 1 MG TABLET PO SCH ×4 (08:33→21:42)
[2021-12-13] MEDS: LISINOPRIL (10MG) 10 MG TABLET PO SCH (08:33)
[2021-12-13] MEDS: DIVALPROEX SODIUM 500 MG TABLET.DR PO SCH ×3 (08:33→21:41)
[2021-12-13] MEDS: MULTIVIT W/MINERALS 1 TAB TABLET PO SCH (08:34)
--- NOTE | 2021-12-13 10:48 | NUR ---
RN-CO: PT IS NOT FOCUS ON PHONE ANYMORE, SHE IS CALMER AND COOPERATIVE. SHE FOLLOWS REDIRECTIONS. DR OWENS DISCONTINUED DENIAL OF RIGHTS.
[2021-12-13 16:00] VITALS: BP 103/53
--- NOTE | 2021-12-13 17:32 | NUR ---
RN-CO: DR OWENS REORDERED DENIAL OF RIGHT TO USE THE PHONE, SINCE PT IS STILL UNSTABLE AND LABILE.
[2021-12-13 20:00] VITALS: BP 110/63
[2021-12-13] MEDS: ATORVASTATIN 40 MG TABLET PO SCH (21:41)
[2021-12-14 08:00] VITALS: BP 113/73
--- NOTE | 2021-12-14 08:15 | NUR ---
Patient seen by hospitalist with new orders for BMP in am 12/15/21, orders carried out by MD, patient with no apparent distress at this time, will monitor closely for any changes.
[2021-12-14] MEDS: LISINOPRIL (10MG) 10 MG TABLET PO SCH (08:16)
[2021-12-14] MEDS: risperiDONE 1 MG TABLET PO SCH ×4 (08:16→21:58)
[2021-12-14] MEDS: DOCUSATE SODIUM 100 MG CAPSULE PO SCH (08:16)
[2021-12-14] MEDS: DIVALPROEX SODIUM 500 MG TABLET.DR PO SCH ×3 (08:16→21:57)
[2021-12-14] MEDS: MULTIVIT W/MINERALS 1 TAB TABLET PO SCH (08:16)
--- NOTE | 2021-12-14 10:34 | NUR ---
RN-CO: DR OWENS DISCONTINUE HOLD FOR DENIAL OF RIGHTS TO USE THE PHONE. BUT SUPERVISE PT WHILE USING IT.
--- NOTE | 2021-12-14 11:12 | NUR ---
RN-CO: DR OWENS DISCONTINUED THE DENIAL OF RIGHTS TO USE THE PHONE. BUT ORDERED SUPERVISION WHILE USING THE PHONE. NOTED.
--- NOTE | 2021-12-14 13:08 | NUR ---
Court Hearing: Patient's court hearing for 4810 was today and it was upheld for GD.
[2021-12-14 16:00] VITALS: BP 101/64
[2021-12-14 20:00] VITALS: BP 120/74
[2021-12-14 20:14] VITALS: BP 120/74
[2021-12-14] MEDS: ATORVASTATIN 40 MG TABLET PO SCH (21:57)
--- NOTE | 2021-12-15 04:42 | NUR ---
went to bed at 10PM her decision. She is clean and aware of her hygiene. She washed her feet prior getting into bed. washed her hand after using the bathroom. she smiles and is cooperative and mannerly.
[2021-12-15 07:57] LABS: CALCIUM, SERUM 9.2 mg/dL (8.5-10.1); CREATININE 0.7 mg/dL (0.6-1.3); POTASSIUM 4.2 mmol/L (3.5-5.1)
[2021-12-15 08:00] VITALS: BP 118/67
[2021-12-15] MEDS: DIVALPROEX SODIUM 500 MG TABLET.DR PO SCH ×3 (08:00→21:47)
--- NOTE | 2021-12-15 08:00 | NUR ---
rn notes patient seen in the bed, too sedated, unable to administer due medication. will follow up.
[2021-12-15] MEDS: DOCUSATE SODIUM 100 MG CAPSULE PO SCH (09:00)
[2021-12-15] MEDS: LISINOPRIL (10MG) 10 MG TABLET PO SCH (09:00)
[2021-12-15] MEDS: MULTIVIT W/MINERALS 1 TAB TABLET PO SCH (09:00)
[2021-12-15] MEDS: risperiDONE 1 MG TABLET PO SCH ×4 (09:00→21:50)
[2021-12-15 16:00] VITALS: BP 114/62
[2021-12-15 20:00] VITALS: BP 127/68
[2021-12-15] MEDS: ATORVASTATIN 40 MG TABLET PO SCH (21:47)
--- NOTE | 2021-12-16 06:38 | NUR ---
GPS RN CLOSING NOTES: PATIENT IS CURRENTLY SLEEPING. PATIENT SLEPT 7HR THIS SHIT. NO S/S OF DISTRESS. RESPIRATION EVEN AND UNLABORED WITH EQUAL RISE AND FALL OF THE CHEST, ON ROOM AIR. ALL PATIENT CARE NEEDS HAVE BEEN MET AT THIS TIME. WILL CONTINUE TO MONITOR AND ENDORSE TO AM SHIFT.
[2021-12-16 08:00] VITALS: BP 112/61
[2021-12-16] MEDS: DIVALPROEX SODIUM 500 MG TABLET.DR PO SCH ×2 (08:15→12:16)
[2021-12-16] MEDS: MULTIVIT W/MINERALS 1 TAB TABLET PO SCH (08:39)
[2021-12-16] MEDS: DOCUSATE SODIUM 100 MG CAPSULE PO SCH (08:39)
[2021-12-16] MEDS: risperiDONE 1 MG TABLET PO SCH ×4 (08:40→21:35)
[2021-12-16] MEDS: LISINOPRIL (10MG) 10 MG TABLET PO SCH (08:40)
[2021-12-16 11:03] LABS: BASOPHILS # (AUTO) 0.1 K/uL (0.0-0.2); BASOPHILS % (AUTO) 1.7 % (0.0-2.0); EOSINOPHILS % (AUTO) 4.2 % (0.0-6.0); HEMATOCRIT 40 % (33-45); HEMOGLOBIN 13.5 g/dL (11.5-14.8); LYMPHOCYTES # (AUTO) 2.2 K/uL (0.8-4.8); LYMPHOCYTES % (AUTO) 30.9 % (20.0-44.0); MEAN CORPUSCULAR HGB CONC 34 g/dl (31.0-36.0); MEAN CORPUSCULAR VOLUME 97 fL (82-100); MONOCYTES # (AUTO) 0.6 K/uL (0.1-1.30); MONOCYTES % (AUTO) 7.7 % (2.0-12.0); NEUTROPHILS % (AUTO) 55.5 % (43.0-81.0); PLATELET COUNT (AUTO) 229 K/uL (150-450); RED BLOOD CELL COUNT(AUTO) 4.13 MIL/uL (4.0-5.2); WHITE BLOOD COUNT (AUTO) 7.3 K/uL (4.3-11.0)
--- NOTE | 2021-12-16 11:25 | NUR ---
MARIAM Individual Therapy: SW met with patient for individual therapy. Patient stated that she is feeling better and wants to go back to her nursing facility. Patient did present with a brighter affect. However, pt did appear to be vague with her answers. SW actively listened.
[2021-12-16 11:46] LABS: ALBUMIN 3.4 g/dL (3.4-5.0); BILIRUBIN,TOTAL 0.5 mg/dL (0.2-1.0); CALCIUM, SERUM 9.1 mg/dL (8.5-10.1); CREATININE 0.7 mg/dL (0.6-1.3); TOTAL PROTEIN, SERUM 7.5 g/dL (6.4-8.2)
[2021-12-16 12:19] LABS: POTASSIUM 3.7 mmol/L (3.5-5.1)
[2021-12-16 16:01] VITALS: BP 116/81
--- NOTE | 2021-12-16 16:02 | NUR ---
RN -NOTES DR. OWENS MADE AWARE OF PATIENT DEPAKOTE LEVEL WITH T.O ORDER TO D/C DEPAKOTE ORDERS AND DEPAKOTE LEVEL IN AM. NOTED AND CARRIED OUT.
--- NOTE | 2021-12-16 16:03 | NUR ---
Dr. Wilcox in the unit, examined the pt. and ordered Lamictal level for today. Addendum: 12/16/21 at 1621 by ROBEL ROTHMAN RN above documentation is not for this pt.
[2021-12-16 20:13] VITALS: BP 94/60
[2021-12-16] MEDS: ATORVASTATIN 40 MG TABLET PO SCH (21:35)
[2021-12-17 08:00] VITALS: BP 120/69
--- NOTE | 2021-12-17 08:05 | NUR ---
RN-NOTES NOTED PATIENT VERY IRRITABLE, ANGRY, SCREAMING WITH THE CLIPPER OPERATOR STATED" I DON'T WANT ANY BLOOD DRAW BECAUSE THIS IS MY FIRST TIME IN THE HOTEL" REORIENTED AND ATIVAN 0.5MG P.O GIVEN PRN ORDER. WILL CONT. MONITORING FOR SAFETY AND BEHAVIOR.
[2021-12-17] MEDS: risperiDONE 1 MG TABLET PO SCH ×4 (08:33→22:10)
[2021-12-17] MEDS: DOCUSATE SODIUM 100 MG CAPSULE PO SCH (08:33)
[2021-12-17] MEDS: MULTIVIT W/MINERALS 1 TAB TABLET PO SCH (08:33)
[2021-12-17] MEDS: LISINOPRIL (10MG) 10 MG TABLET PO SCH (08:34)
--- NOTE | 2021-12-17 09:05 | NUR ---
RN-NOTES PATIENT LYING IN BED AWAKE,ALERT CALM NO ACUTE DISTRESS NOTED.
--- NOTE | 2021-12-17 13:27 | NUR ---
Dr. Fraser made aware of the Depakote level of 50 and ordered Depakote 375 mg po TID and to start now.
[2021-12-17] MEDS: DIVALPROEX SODIUM 125 MG TABLET.DR PO SCH ×2 (13:44→16:21)
[2021-12-17 16:00] VITALS: BP 100/60
[2021-12-17 19:48] VITALS: BP 112/76
[2021-12-17] MEDS: ATORVASTATIN 40 MG TABLET PO SCH (22:10)
[2021-12-18 08:00] VITALS: BP 100/59
[2021-12-18] MEDS: DOCUSATE SODIUM 100 MG CAPSULE PO SCH (08:35)
[2021-12-18] MEDS: MULTIVIT W/MINERALS 1 TAB TABLET PO SCH (08:37)
[2021-12-18] MEDS: LISINOPRIL (10MG) 10 MG TABLET PO SCH (08:37)
[2021-12-18] MEDS: DIVALPROEX SODIUM 125 MG TABLET.DR PO SCH ×3 (09:14→16:31)
[2021-12-18] MEDS: risperiDONE 1 MG TABLET PO SCH ×4 (09:14→21:16)
[2021-12-18 16:00] VITALS: BP 114/69
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
[2021-12-18 20:00] VITALS: BP 106/74
[2021-12-18 21:03] VITALS: BP 106/74
[2021-12-18] MEDS: ATORVASTATIN 40 MG TABLET PO SCH (21:14)
--- NOTE | 2021-12-19 07:30 | NUR ---
Received patient in bed, asleep with no s/s of discomforts. Will continue to monitor.
[2021-12-19 07:42] LABS: CALCIUM, SERUM 9.1 mg/dL (8.5-10.1); CREATININE 0.7 mg/dL (0.6-1.3); POTASSIUM 3.7 mmol/L (3.5-5.1)
[2021-12-19 08:00] VITALS: BP 130/74
[2021-12-19] MEDS: DIVALPROEX SODIUM 125 MG TABLET.DR PO SCH ×4 (09:00→16:27)
[2021-12-19] MEDS: DOCUSATE SODIUM 100 MG CAPSULE PO SCH (09:13)
[2021-12-19] MEDS: LISINOPRIL (10MG) 10 MG TABLET PO SCH (09:14)
[2021-12-19] MEDS: risperiDONE 1 MG TABLET PO SCH ×4 (09:14→21:23)
[2021-12-19] MEDS: MULTIVIT W/MINERALS 1 TAB TABLET PO SCH (09:14)
--- NOTE | 2021-12-19 12:24 | NUR ---
Spoke with doctor regarding Lab in regards to Depakote level, per doctor continue to to give medications. Patient took medications with no problems.
--- NOTE | 2021-12-19 15:25 | NUR ---
MARIAM Individual Therapy: SW met with patient at bedside for individual therapy regarding positive coping mechanisms. SW explored pt.'s current coping mechanism and provided psychoeducation. Patient stated that she is normally calm. Patient states she currently feels happy and enjoys watching movie and reading books. Pt. remained calm & cooperative and participated in group.
[2021-12-19 16:00] VITALS: BP 111/64
--- NOTE | 2021-12-19 17:55 | NUR ---
Patient, up and about, watching TV in dayroom. Cooperative and med compliance. Denies SI/HI/VA/AH.
[2021-12-19 19:47] VITALS: BP 132/76
[2021-12-19] MEDS: ATORVASTATIN 40 MG TABLET PO SCH (21:23)
--- NOTE | 2021-12-20 06:36 | NUR ---
RN NOTES: COLLECT COVID ANTIGEN TEST AND SEND OUT THE LAB.
[2021-12-20 08:00] VITALS: BP 100/59
--- NOTE | 2021-12-20 08:09 | NUR ---
Discharge Note: Patient will be discharged to [facility] [address] [place] [address]; ([phone]). Please arrange transportation at 1PM. Lean Consultant spoke with Heath caldwell at [facility] ([phone]) who stated patient will be accepted at facility today. Patients is aware and agreeable. Patient is alert and oriented x2 and is not able to plan for self-care at this time but is willing to accept care provided for at the facility. Patient denies suicidal or homicidal ideation. Patients johana Arauz ([phone]) is aware and agreeable with discharge plans. Patient will follow-up with (Psychiatrist) Dr. Fraser [address] [facility] [address], [place] [address]; ([phone]) and Oracle Applications Developer Dr. Felipe [address] [facility] [address], [place] [address]; ([phone]). Patient presents with euthymic mood and congruent affect. Addendum: 12/20/21 at 1226 by MARIAM NICOLAS Discharge canceled due to Dr. Fraser requesting to check pt's Depakote level.
[2021-12-20] MEDS: DIVALPROEX SODIUM 125 MG TABLET.DR PO SCH ×3 (09:12→17:00)
[2021-12-20] MEDS: LISINOPRIL (10MG) 10 MG TABLET PO SCH (09:13)
[2021-12-20] MEDS: DOCUSATE SODIUM 100 MG CAPSULE PO SCH (09:13)
[2021-12-20] MEDS: risperiDONE 1 MG TABLET PO SCH ×4 (09:13→22:04)
[2021-12-20] MEDS: MULTIVIT W/MINERALS 1 TAB TABLET PO SCH (09:13)
[2021-12-20 16:00] VITALS: BP 101/74
[2021-12-20 20:29] VITALS: BP 122/59
[2021-12-20 20:42] VITALS: BP 122/59
[2021-12-20] MEDS: ATORVASTATIN 40 MG TABLET PO SCH (21:23)
[2021-12-21 08:00] VITALS: BP 130/79
--- NOTE | 2021-12-21 08:16 | NUR ---
SW Discharge Note: Patient will be discharged to fdc facility [facility] [address] [place] [address]; ([phone]). Please arrange transportation at 1PM. Pharmacist Intern spoke with Heath caldwell at [facility] ([phone]) who stated patient will be accepted at facility today. Patients is aware and agreeable. Patient is alert and oriented x2 and is not able to plan for self-care at this time but is willing to accept care provided for at the facility. Patient denies suicidal or homicidal ideation. Patients johana Arauz ([phone]) is aware and agreeable with discharge plans. Patient will follow-up with (Psychiatrist) Dr. Fraser [address] [facility] [address], [place] [address]; ([phone]) and Rocket Test Fire Worker Dr. Felipe [address] [facility] [address], [place] [address]; ([phone]). Patient presents with euthymic mood and congruent affect.
[2021-12-21 09:43] VITALS: BP 130/79
[2021-12-21] MEDS: LISINOPRIL (10MG) 10 MG TABLET PO SCH (09:43)
[2021-12-21] MEDS: risperiDONE 1 MG TABLET PO SCH ×2 (09:43→12:35)
[2021-12-21] MEDS: MULTIVIT W/MINERALS 1 TAB TABLET PO SCH (09:43)
[2021-12-21] MEDS: DIVALPROEX SODIUM 125 MG TABLET.DR PO SCH ×2 (09:43→12:36)
[2021-12-21] MEDS: DOCUSATE SODIUM 100 MG CAPSULE PO SCH (09:43)
--- NOTE | 2021-12-21 13:45 | NUR ---
Patient discharged to [facility] in stable condition.Compliant with medications cooperative with treatment plans Patient denies SI/HI/AVH .Behavior improved ,psychiatric tx plans met medical tx plans differed for for continual monitoring .Educated pt about after care plan (Exit -care)and copy provided .Returned personal belongings to patient med list given and explained to patient Unable to verbalize understanding due to confusion ,refused discharge photo report given to Derrek LEE in facility Vs stable ,no c/o pain .Patient seen by and with discharge orders and prescriptions .Patient discharge at 1820 with ambulance.
== END 2021-12-21 13:45 | DRG 885 ==
LOC: ER 16:37 → GPS 20:24
PROVIDERS: ADMIT Psychiatry & Neurology Psychosomatic Medicine; ATTEND Nurse Practitioner Family
DX: F25.0 Schizoaffective disorder, bipolar type (principal); F01.50 Vascular dementia, unspecified severity, without behavioral disturbance, psychotic disturbance, mood disturbance, and anxiety; F23 Brief psychotic disorder; F29 Unspecified psychosis not due to a substance or known physiological condition; Z20.822 Contact with and (suspected) exposure to COVID-19; Z86.73 Personal history of transient ischemic attack (TIA), and cerebral infarction without residual deficits; E78.5 Hyperlipidemia, unspecified; E87.6 Hypokalemia; F41.9 Anxiety disorder, unspecified; F60.9 Personality disorder, unspecified; I10 Essential (primary) hypertension; F32.9 Major depressive disorder, single episode, unspecified; Z73.6 Limitation of activities due to disability; E11.9 Type 2 diabetes mellitus without complications; E11.21 Type 2 diabetes mellitus with diabetic nephropathy; Z88.0 Allergy status to penicillin
CPT/HCPCS: 36415; 80048-TC; 80053-TC; 80061-TC; 80076-TC; 80164-TC; 81001; 82962-TC; 84443-TC; 85025-TC; 87081-TC; 87086-TC; 97116-TC; 97530-TC; C9803; G0480